=== PATIENT | female | born 2000 | race Caucasian/White ===

== ENCOUNTER 2021-06-24 17:49 | Inpatient (IN) | payer OTHER ==
[~2021-06-24] VITALS: Ht 160 cm; Wt 81.6 kg
--- NOTE | 2021-06-24 18:50 | NUR ---
BOTH NARES SWABBED FOR COVID-19 WITHOUT COMPLICATION. SAMPLE TAKEN TO LAB.
--- NOTE | 2021-06-24 22:33 | PR ---
[facility] [address], [place] [address] Signed Progress Notes IP Datetime Report Generated by CPN: 06/24/2021 22:33 PROGRESS NOTES: [id number] Impression: Normal Progression of Labor; Reassuring Heart Rate Procedures: Intrauterine Pressure Catheter; Sterile Vag Exam Plan: Continue Present Management; Anticipate Vaginal Delivery Informed Consent Obtain: Vaginal Delivery VITAL SIGNS: [id number] Vital Signs: Reviewed; Within Normal Limits EXAM: [id number] Dilatation: 8.0 Effacement: 90 Station: 0 Contractions: q 3 min per pt. MEMBRANES: [id number] Comments: Pt seen and examined. Doing well. Comfortable w/ epidural. SROM w/ meconium stained fluid. Noted variable decelerations. IUPC placed to help evaluate contractions more accurately. Anticipate . Reviewed anticipated course of labor / delivery. All questions answered. FETUS A: [id number] FHR Baseline: 145 Variability: Moderate 6-25bpm Accelerations: 15X15 Decelerations: None FHR Category: Category I Presentation: Vertex Comments on Fetus A: No evidence of metabolic acidosis FETUS B: [id number] Signing Physician: Arlyn Rueda DO Copies: ~ *Electronically Signed* 06/24/21 0187 ARLYN RUEDA DO PATIENT NAME: KECIA JACKSON PROGRESS NOTE DATE OF : 01 PHYSICIAN: ARLYN RUEDA DO RPT #: [id number] REPORT IS CONFIDENTIAL AND NOT TO BE RELEASED WITHOUT AUTHORIZATION
--- NOTE | 2021-06-25 00:05 | PR ---
[facility] [address] [facility] [place], [place] [address] Signed Progress Notes IP Datetime Report Generated by CPN: 06/25/2021 00:05 PROGRESS NOTES: [id number] Impression: Normal Progression of Labor; Reassuring Heart Rate Procedures: Sterile Vag Exam Plan: Anticipate Vaginal Delivery Informed Consent Obtain: Vaginal Delivery VITAL SIGNS: [id number] Vital Signs: Reviewed; Within Normal Limits EXAM: [id number] Dilatation: 9.5 Effacement: 100 Station: 0 Contractions: q 3 min per pt. MEMBRANES: [id number] Comments: Pt seen and examined. Doing well. Uncomfortable w/ contractions. FHT reassuring. Will start pushing. Anticipate soon FETUS A: [id number] FHR Baseline: 145 Variability: Moderate 6-25bpm Accelerations: 15X15 Decelerations: None FHR Category: Category I Presentation: Vertex Comments on Fetus A: No evidence of metabolic acidosis FETUS B: [id number] Signing Physician: Arlyn Rueda DO Copies: ~ *Electronically Signed* 06/25/21 ARLYN WAYNE DO PATIENT NAME: KECIA JACKSON MICHAEL PROGRESS NOTE DATE OF : 01 PHYSICIAN: ARLYN UREDA DO RPT #: [id number] REPORT IS CONFIDENTIAL AND NOT TO BE RELEASED WITHOUT AUTHORIZATION
--- NOTE | 2021-06-25 09:46 | PR ---
[facility] [address] [facility] [place], [place] [address] Signed PP Progress Notes Datetime Report Generated by CPN: 06/25/2021 09:46 SUBJECTIVE: [id number] Pain: Within Normal Limits Nausea/Vomiting: Denies Flatus: Yes Bowel Movement: No Vital Signs: [id number] Vital Signs: Reviewed; Within Normal Limits Cardiovascular: Normal Respiratory: Normal Abdomen/Uterus: Normal Lochia: Normal CVA Tenderness: Normal Extremities: Normal Incision: Not Applicable Progress: Normal Exam Comments: Fundus firm U-2 nontender IMPRESSION/PLAN/PROCEDURES: [id number] Impression: Normal Progression Plan: Discharge Progress Notes: Pt seen and examined. Doing well. Ambulating and tolerating full diet. Mckeon removed this morning but has not yet voided. was shipped to NICU at [facility] this morning and mother would like to be discharged to be with him. She is pumping. No concerns. Reviewed pp education. Pt will f/u in 2 wks, sooner if needed Signing Physician: Arlyn Rueda DO Copies: ~ *Electronically Signed* 06/25/21 0946 ARLYN RUEDA DO PATIENT NAME: KECIA JACKSON PROGRESS NOTE DATE OF : 01 PHYSICIAN: ARLYN RUEDA DO RPT #: [id number] REPORT IS CONFIDENTIAL AND NOT TO BE RELEASED WITHOUT AUTHORIZATION
== END 2021-06-25 13:43 | disposition home or self-care (01) | DRG 806 ==
LOC: FBCO 17:49 → FBC 18:25
PROVIDERS: ADMIT Obstetrics & Gynecology; ATTEND Obstetrics & Gynecology
PROC: 10E0XZZ Delivery of Products of Conception, External Approach (ICD-10-PCS; principal; 2021-06-25)
PROC: 10H07YZ Insertion of Other Device into Products of Conception, Via Natural or Artificial Opening (ICD-10-PCS; 2021-06-25)
PROC: 0UQMXZZ Repair Vulva, External Approach (ICD-10-PCS; 2021-06-25)
PROC: 3E0R3BZ Introduction of Anesthetic Agent into Spinal Canal, Percutaneous Approach (ICD-10-PCS; 2021-06-25)
PROC: 00HU33Z Insertion of Infusion Device into Spinal Canal, Percutaneous Approach (ICD-10-PCS; 2021-06-25)
DX: O98.52 Other viral diseases complicating childbirth (principal); O99.324 Drug use complicating childbirth; Z37.0 Single live birth; O77.0 Labor and delivery complicated by meconium in amniotic fluid; O69.1XX0 Labor and delivery complicated by cord around neck, with compression, not applicable or unspecified; O71.82 Other specified trauma to perineum and vulva; B00.9 Herpesviral infection, unspecified; Z20.822 Contact with and (suspected) exposure to COVID-19; O99.344 Other mental disorders complicating childbirth; F12.90 Cannabis use, unspecified, uncomplicated; F32.A Depression, unspecified; F41.9 Anxiety disorder, unspecified; Z3A.39 39 weeks gestation of pregnancy
CPT/HCPCS: 01960; 80053; 82803; 85025; 85027; A9270; C9803; J2590; J7121; U0003